=== PATIENT | male | born 1995 | race Caucasian/White ===

== ENCOUNTER 2017-04-25 11:09 | Inpatient (IN) | payer BC, OTHER ==
[~2017-04-25] VITALS: Ht 172.7 cm; Wt 90.7 kg
[2017-04-25 19:54] VITALS: BP 146/83
--- NOTE | 2017-04-25 19:54 | NUR ---
INTAKE ASSESSMENT PATIENT ALERT AND ORIENTED X 4. VS BP- 146/83 P-103 T-97.8 R-18 PA-0/10. Sp02 AT 96% IN RA. PATIENT ANSWER QUESTIONS APPROPRIATELY. SPEECH IS CLEAR. AMBULATORY AND GAIT IS STEADY. PATIENT REPORTS ALLERGIC TO PENICILLIN. NO SEIZURE HISTORY. WILL CONTINUE ADMISSION ON 3RD FLOOR.
--- NOTE | 2017-04-25 20:51 | NUR ---
ADMISSION NOTE PATIENT IS A 22 YEAR OLD MALE WHO PRESENTS TO [facility] FOR SUPERVISED WITHDRAWAL FROM OPIATE/BENZO/METH/COCAINE DEPENDENCE. HEIGHT IS 5'8 AND WEIGHT IS 200 LBS. PATIENT REQUESTED TO BE FULL CODE AND ON REGULAR DIET. LUNGS CLEAR AND ABDOMEN SOFT AND NON-DISTENDED. BOWEL SOUNDS ACTIVE ON ALL QUADRANT. BODY CHECK DONE. SKIN INTACT. NO SKIN BREAKDOWN. LAST BOWEL MOVEMENT 3 DAYS AGO. NO ABDOMINAL CRAMPING. PATIENT REPORTS PMH OF ANXIETY, DEPRESSION AND OVERDOSE (LAST YEAR). PATIENT STATES HE DOESN'T HAVE PCP. PATIENT LIVES WITH A FRIEND AND UNEMPLOYED. PATIENTS DRUG OF CHOICE ARE : XANAX (SNORT AND EAT) - STARTED USING AT AGE 19. TAKES 4-8 MG DAILY FOR 2 WEEKS . LAST USE WAS 6 MG ON 04/25/17 HEROIN (SMOKE )-STARTED USING AT AGE 18 . SMOKES 1 GRAM DAILY FOR 2 WEEKS . LAST USE WAS 3-4 GRAM ON 04/25/17 SUBOXONE (SL)-STARTED USING FOR A MONTH FOR [facility] MAINTENANCE. TAKES 8 MG BID FOR 2 DAYS SINCE IT WAS PRESCRIBED THEN TAKES LESS AFTER . LAST USE WAS 4 MG ON 04/22/17 METHAMPHETAMINE (SMOKE)-STARTED USING AT AGE 22. SMOKES GRAM DAILY FOR A WEEK. LAST USE WAS 1 GRAM ON 04/25/17 COCAINE(SNORT)-STARTED USING AT AGE 18.TAKES "8 BALL" DAILY FOR 2 WEEKS . LAST USE WAS 4-5 GRAM LAST WEEK. MARIJUANA (SMOKE)-STARTED SMOKING AT AGE 12. TAKES FEW HITS RANDOMLY . LAST USE WAS COUPLE OF HITS ON 04/24/17 TREATMENT [facility]- 26 DAYS PATIENT STATES HES ANXIOUS. COWS 10 AND CIWA 7. DENIES SI/HI. PATIENT REFUSED PNEUMONIA AND FLU VACCINE DUE TO FEARS OF SIDE EFFECTS. EDUCATION PROVIDED. PATIENT ORIENTED TO SURROUNDINGS AND HOW TO USE CALL LIGHT. PATIENT WAS PLACED ON FALL PRECAUTION. PATIENT WAS SEEN BY DR. DELGADO IN INTAKE. SAFETY MEASURES IN PLACE. CALL LIGHT IN REACH. WILL CONTINUE TO MONITOR
[2017-04-25 21:06] LABS: *AMPHETAMINE, URINE POSITIVE (NEGATIVE); *BARBITURATE, URINE NEGATIVE (NEGATIVE); *CANNABINOID, URINE POSITIVE (NEGATIVE); *COCCAINE, URINE POSITIVE (NEGATIVE); *OPIATE, URINE POSITIVE (NEGATIVE); *PHENCYCLIDINE SCREEN,URINE NEGATIVE (NEGATIVE)
[2017-04-25 23:34] LABS: ETHANOL < 3 MG/DL (0-0)
[2017-04-25 23:40] LABS: ALANINE AMINOTRANSFERASE 25 U/L (16-63); ALKALINE PHOSPHATASE 81 U/L (50-136); ASPARTATE AMINOTRANSFERASE 24 U/L (15-37); BILIRUBIN,TOTAL 1.5 mg/dL (0.2-1.0); CARBON DIOXIDE 31 mmol/L (21-32); CHLORIDE 101 mmol/L (98-107); CREATININE 1.2 mg/dL (0.6-1.3); GLUCOSE 116 mg/dL (74-106); POTASSIUM 3.4 mmol/L (3.5-5.1); TOTAL PROTEIN, SERUM 8.1 g/dL (6.4-8.2); UREA NITROGEN, BLOOD 8 mg/dL (7-18)
[2017-04-26] VITALS: BP 140/75
[2017-04-26 00:02] LABS: BASOPHILS # (AUTO) 0.1 K/uL (0.0-8.0); BASOPHILS % (AUTO) 0.7 % (0.0-2.0); EOSINOPHILS # (AUTO) 0.9 K/uL (0.0-0.7); EOSINOPHILS % (AUTO) 8.4 % (0.0-7.0); HEMATOCRIT 48.6 % (40-50); HEMOGLOBIN 16.6 G/DL (14.0-18.0); LYMPHOCYTES # (AUTO) 2.6 K/UL (0.8-4.8); LYMPHOCYTES % (AUTO) 23.7 % (20.5-74.5); MEAN CORPUSCULAR HEMOGLOBIN 30.2 UUG (27.0-31.0); MEAN CORPUSCULAR HGB CONC 34 g/dL (32.0-37.0); MEAN CORPUSCULAR VOLUME 88.4 FL (82.0-92.0); NEUTROPHILS # (AUTO) 5.8 K/UL (1.8-8.9); NEUTROPHILS % (AUTO) 51.7 % (31.5-64.5); PLATELET COUNT (AUTO) 368 K/UL (150-450); WHITE BLOOD COUNT (AUTO) 11.1 K/UL (4.0-11.2)
[2017-04-26 00:03] LABS: MONOCYTES % (AUTO) 15.5 % (0-11)
[2017-04-26 00:04] LABS: MONOCYTES # (AUTO) 1.7 K/UL (0.1-1.30)
--- NOTE | 2017-04-26 00:07 | NUR ---
PRN CATAPRES, VISTARIL AND BENADRYL ADMINISTRATION PATIENT C/O ANXIETY, RESTLESS AND UNABLE TO SLEEP. PRN VISTARIL , CATAPRES AND BENADRYL GIVEN. WILL MONITOR FOR EFFECTIVENESS.
--- NOTE | 2017-04-26 01:07 | NUR ---
PRN VISTARIL .CATAPRES AND BENADRYL PATIENT ASLEEP AT THIS TIME. RESPIRATION EVEN AND UNLABORED. NO S/S OF DISTRESS. WILL CONTINUE TO MONITOR
[2017-04-26 04:00] VITALS: BP 111/59
--- NOTE | 2017-04-26 04:00 | NUR ---
COWS/CIWA PATIENT SLEEPING. COWS AND CIWA DEFERRED. RESPIRATION EVEN AND UNLABORED. SAFETY MEASURES IN PLACE. CALL LIGHT IN REACH. WILL CONTINUE TO MONITOR.
[2017-04-26] MEDS ORDERED: DOXY100C2 PO (04:02)
[2017-04-26] MEDS ORDERED: QUET100T PO (04:02)
[2017-04-26] MEDS ORDERED: HYDR-3028 PO (04:02)
[2017-04-26] MEDS ORDERED: DULO60CA45 PO (04:02)
[2017-04-26] MEDS ORDERED: BUPR1FIL3 SL (04:05)
[2017-04-26] MEDS ORDERED: TRAZ-144 PO (04:05)
--- NOTE | 2017-04-26 07:06 | NUR ---
END OF SHIFT NOTE PATIENT IS A 22 YEAR OLD MALE ADMITTED FOR OPIATE/BENZO/METH/COCAINE DEPENDENCE. PATIENT COMPLIANT WITH MEDICATION. COOPERATIVE. PATIENT WAS GIVEN PRN VISTARIL, CATAPRES AND BENADRYL . PATIENT SLEPT 5 HOURS. FLUID INTAKE 355 ML. VOIDED X 1. NO BM. ENDORSED TO NEXT SHIFT NURSE PATIENTS POTASSIUM 3.4. SAFETY MEASURES IN PLACE. CALL LIGHT IN REACH. WILL CONTINUE TO MONITOR.
--- NOTE | 2017-04-26 07:12 | NUR ---
END OF SHIFT NOTE PATIENT IS A 33 YEAR OLD MALE ADMITTED FOR BENZODIAZEPINE DEPENDENCE. PATIENT COMPLETED VALIUM TAPER. PATIENT IS MEDICALLY CLEARED TO BE DISCHARGE TODAY. PATIENT WITH SEIZURE HISTORY 2 YEARS AGO (BENZO W/D). PATIENT IS COMPLAINT WITH MEDICATION AND TREATMENT PLAN. PATIENT WAS GIVEN PRN BENADRYL FOR SLEEP. PATIENT REMAIN ALERT AND ORIENTED X 4. RESPIRATION EVEN AND UNLABORED. NO SOB. PATIENT DENIES ANY PAIN DURING SHIFT. ON FALL/SEIZURE PRECAUTION. SAFETY MEASURES IN PLACE. CALL LIGHT IN REACH. WILL CONTINUE TO MONITOR . SLEPT 7 HOURS. FLUID INTAKE OF 1,855. VOIDED X 3. NO BM. LAST CIWA 0. Addendum: 04/26/17 at 0713 by GUSTABO KING LVN ERROR: THIS CHARTING IS FOR ANOTHER PATIENT
--- NOTE | 2017-04-26 07:30 | NUR ---
START OF SHIFT Pt is a 22 yr old male, A&Ox3. Pt was admitted during the night on 04/25/17 for Opiate/Benzo Dependence and is to start on 4 day Ativan and 4 day Subutex taper today on 04/26/17. Received report from shift manager nurse. Pt received Clonidine PRN, Vistaril PRN and Benadryl PRN during the night. Medication was effective. Last COWS score was 3 and CIWA score was 1 at 0000. Pt is currently in bed resting with respirations even and unlabored. No acute distress noted. Safety precautions is observed. Was endorsed to f/u with K+ of 3.4. Will f/u with MD. Call light is within reach. Will continue to monitor.
[2017-04-26 08:00] VITALS: BP 124/60
[2017-04-26 10:00] LABS: EOSINOPHILS % (MANUAL) 7 % (0-8); LYMPHOCYTES % (MANUAL) 26 % (38-48); MONOCYTES % (MANUAL) 13 % (2-10); NEUTROPHILS % (MANUAL) 54 % (40-55)
[2017-04-26 11:01] LABS: NEUTROPHILS % (MANUAL) 0 % (40-55)
--- NOTE | 2017-04-26 11:19 | NUR ---
ENDORSEMENT GIVEN Endorse pt to ARYAN Gallagher to continue with care.
--- NOTE | 2017-04-26 11:32 | NUR ---
ENDORSEMENT RECEIVED. PT AOX4. DENIES S/I AND H/I. NO DISTRESS NOTED. ALL NEEDS MET. WILL MONITOR AND CONTINUE PLAN OF CARE.
[2017-04-26 12:00] VITALS: BP 128/75
--- NOTE | 2017-04-26 15:41 | NUR ---
COMMUNICATION Pt awake and said he is having night terrors and mild hallucinations, communicated with Dr. Douglas (who is on unit) about patient status. Verbal order for Seroquel 50mg PO Once. Primary nurse to administer medication. Addendum: 04/26/17 at [address] RN patient refused medication. he states seroquel will just make him more tired and he will take it before bed as ordered.
[2017-04-26 16:00] VITALS: BP 109/82
--- NOTE | 2017-04-26 16:45 | NUR ---
Therapist prompted client about group times. Client stated he will try to attend tomorrow when he is "not so tired from meds."
--- NOTE | 2017-04-26 18:36 | NUR ---
END OF SHIFT NOTE PT CONTINUED ON 4 DAY SUBUTEX/4 DAY ATIVAN TAPER AND TOLERATED WELL. NO PRNS GIVEN DURING SHIFT DETOX MEDS ARE EFFECTIVE. PT DDI NOT ATTEND GROUPS OR ACTIVITIES. HE RESTED IN BED MOST OF SHIFT. VITAL SIGNS STABLE. LAST CIWA 6 COWS 10. ALL NEEDS MET. ALL SAFETY MEASURES IN PLACE. WILL ENDORSE TO NIGHT NURSE.
[2017-04-26 20:00] VITALS: BP 118/72
--- NOTE | 2017-04-26 20:00 | NUR ---
Start of Shift Notes Received a 22 yr old male, A&Ox4. Admitted on 04/25/17 for Opiate/Benzo dependence. On regular diet, FULL code, allergic to penicillin. On 4 day Ativan and 4 day Subutex taper. During rounds at 2000H, px verbalized back pain 10. COWS 11 and CIWA 9. Respirations even and unlabored. No acute distress noted. Safety precautions is observed. Call light is within reach. We'll continue to monitor.
--- NOTE | 2017-04-26 21:05 | NUR ---
PRN Robaxin Px complained of back pain 01/31. Robaxin 750mg 1 tab given PO as PRN med. We'll continue to monitor.
--- NOTE | 2017-04-26 21:35 | NUR ---
COWS deferred COWS reassessment deferred after 30 mins of Subutex 2mg, 2 tabs SL administration. due to the px is sleeping, to be assessed if the px is awake per doctor's order. We'll continue to monitor.
[2017-04-27] VITALS: BP 116/71
--- NOTE | 2017-04-27 | NUR ---
COWS and CIWA deferred Assessment for COWS and CIWA at 0000 were deferred due to the px is sleeping, to assess if the px is awake per doctor's order. We'll continue to monitor.
--- NOTE | 2017-04-27 03:54 | NUR ---
PRN motrin and tylenol Px woke up complaining of severe pain on left posterior thigh, 10/10. Assessment done, No swelling nor fx noted. Motrin 600mg 1 tab and Tylenol 325mg 2 tabs given PO as PRN meds. Snack also served to px. We'll continue to monitor.
[2017-04-27 04:00] VITALS: BP 104/57
--- NOTE | 2017-04-27 05:00 | NUR ---
Reassessment of pain deferred Px was sleeping at 0500, pain reassessment was deferred. We'll continue to monitor.
--- NOTE | 2017-04-27 07:19 | NUR ---
End of Shift Notes 22 yr old male, A&Ox4. Admitted on 04/25/17 for Opiate/Benzo dependence. On regular diet, FULL code, allergic to penicillin. During the shift, px verbalized back pain 01/31, Robaxin 750mg 1 tab given PO as PRN med. Respirations even and unlabored. At 0400, Px woke up complaining of severe pain on left posterior thigh, 05/03. Assessment done, No swelling nor fx noted. Motrin 600mg 1 tab and Tylenol 325mg 2 tabs given PO as PRN meds. Snack also served to px. Reassessment of pain was deferred due to the px is sleeping after 1 hour of administration of pain meds. No acute distress noted. Oral intake of 1L, voided 1x, No BM. Slept for 7.5 hrs. Safety precautions are observed. Call light is within reach. We'll continue to monitor.
[2017-04-27 08:00] VITALS: BP 131/65
[2017-04-27 08:11] LABS: HEPATITIS B SURFACE AG Negative (Negative)
--- NOTE | 2017-04-27 08:41 | NUR ---
START OF SHIFT NOTE Received pt aox4. Patient reports feeling tired with generalized body aches. He was given PRN Robaxin, Motrin, and Tylenol per night nurse. Pt on 4 day Ativan/4 day Subutex taper. Last COWS 5 CIWA 5 this am at 0800. He slept for 7 hours. Encouraged pt to attend groups and activities. Encouraged pt to increase fluid intake to facilitate detox. Will monitor closely and offer help.
--- NOTE | 2017-04-27 08:42 | NUR ---
PRN MEDICATION PRN ROBAXIN GIVEN FOR BODY ACHES 01/31 WILL REASSESS
--- NOTE | 2017-04-27 09:45 | NUR ---
PRN REASSESSMENT PATIENT SLEEPING IN BED WITH RR EVEN AND UNLABORED. NO DISTRESS NOTED. WILL MONITOR.
[2017-04-27 12:00] VITALS: BP 118/60
[2017-04-27 16:00] VITALS: BP 108/55
--- NOTE | 2017-04-27 17:56 | NUR ---
PRN MEDICATION ROBAXIN GIVEN FOR BODY ACHES 01/01. WILL REASSESS
--- NOTE | 2017-04-27 18:33 | NUR ---
END OF SHIFT NOTE PT CONTINUED ON 4 DAY SUBUTEX/4 DAY ATIVAN TAPER AND TOLERATED WELL. PRN ROBAXIN X2 GIVEN. PT DID NOT ATTEND GROUPS OR ACTIVITIES. HE RESTED IN BED MOST OF SHIFT. VITAL SIGNS STABLE. LAST CIWA 4 COWS 4. ALL NEEDS MET. ALL SAFETY MEASURES IN PLACE. WILL ENDORSE TO NIGHT NURSE.
--- NOTE | 2017-04-27 18:54 | NUR ---
PRN REASSESSMENT PATIENT REPORTS BODY ACHES DECREASED TO 3/10
[2017-04-27 20:00] VITALS: BP 123/75
--- NOTE | 2017-04-27 20:00 | NUR ---
Start of Shift Notes Received a 22 yr old male, A&Ox4. Admitted on 04/25/17 for Opiate/Benzo dependence. On regular diet, FULL code, allergic to penicillin. On 4 day Ativan and 4 day Subutex taper. During rounds at 2000H, px verbalized back pain 6/10. COWS 6 and CIWA 6. Respirations even and unlabored. No acute distress noted. Safety precautions is observed. Call light is within reach. We'll continue to monitor.
--- NOTE | 2017-04-27 21:11 | NUR ---
PRN Motrin and Tylenol Px complained of back pain of 6/10. Baclofen 10 mg 1 tab given PO as standing order; Motrin 600 mg 1 tab, and Tylenol 325 mg 2 tabs given as PRN meds. We'll continue to monitor.
--- NOTE | 2017-04-27 22:20 | NUR ---
Pain reassessment Pain assessment was deferred due to the px is sleeping. Respirations are even and unlabored at 16 cpm. We'll continue to monitor.
[2017-04-28] VITALS (7 sets, daily range): BP systolic 107–130; BP diastolic 59–87
--- NOTE | 2017-04-28 | NUR ---
COWS and CIWA deferred Assessment for COWS and CIWA deferred due to the px is sleeping, to assess if the px is awake per doctor's order. We'll continue to monitor.
--- NOTE | 2017-04-28 07:09 | NUR ---
Start of Shift Notes 22 yr old male, A&Ox4. Admitted on 04/25/17 for Opiate/Benzo dependence. On regular diet, FULL code, allergic to penicillin. On 4 day Ativan and 4 day Subutex taper. During the shift, Px complained of back pain of 6/10. Baclofen 10 mg 1 tab given PO as standing order; Motrin 600 mg 1 tab, and Tylenol 325 mg 2 tabs given PO as PRN meds. Respirations even and unlabored. No acute distress noted. Oral intake of 600 ml, voided 1x, no BM. Slept for 8 hrs. Last COWS 6, CIWA 6. Safety precautions is observed. Call light is within reach. We'll continue to monitor. Addendum: 04/28/17 at 0713 by DIOGO VELAZCO RN End of shift Notes
--- NOTE | 2017-04-28 10:00 | NUR ---
PRN IBUPROFEN AND ROBAXIN Patient complains of low back pain 5/10, grimacing and guarding noted. PRN ibuprofen and robaxin given. Will continue to monitor patient.
--- NOTE | 2017-04-28 10:05 | NUR ---
START OF SHIFT Received report from power and recovery shift engineer nurse. Patient is 22 year old male admitted for medically supervised withdrawal from alcohol and alprazolam. Patient is full code with allergy to penicillin. On assessment this AM: CIWA: 4 and COWS: 5. Denies SOB, chest pain. Patient's vitals signs WNL. Reports sweating, dilation of pupils noted, tremors and anxiety. Complains of low back pain. Denies nausea, vomiting, diarrhea, tingling sensation at this time. Med compliant with AM meds. PRN robaxin and ibuprofen given for low back pain 12/01. Patient reports no BM for 3 days but declined prn when offered and states he just needs to eat more, will notify MD. Patient refused his breakfast. Patient was encouraged to hydrate with fludis and attend group meetings today. Will continue to monitor patient.
--- NOTE | 2017-04-28 11:00 | NUR ---
REASSESSMENT PRN IBUPROFEN AND ROBAXIN Patient is noted asleep, sleeping comfortably.
--- NOTE | 2017-04-28 12:50 | NUR ---
PRN TYLENOL AND CLONIDINE Patient complains of low back pain and anxiety. PRN Tylenol and clonidine (BP 121/69, HR 90) given. Will continue to monitor patient.
--- NOTE | 2017-04-28 13:45 | NUR ---
Activity Group Note: Client chose not to participate in "sand art" activity, but continued to socialize with peers. Intervention goal was to increase task focus and leisure skills. Client appeared confused and stated that he was "tired." Client's mood was appropriate. Client was present for activity but did not participate. First encounter, and will continue to encourage participation.
--- NOTE | 2017-04-28 13:50 | NUR ---
REASSESSMENT PRN TYLENOL AND CLONIDINE Patient repots pain decreased to 3/10 and anxiety resolved
--- NOTE | 2017-04-28 19:31 | NUR ---
END OF SHIFT Received report from shift stacker nurse. Patient is 22 year old male admitted for medically supervised withdrawal from alcohol and alprazolam. Patient is full code with allergy to penicillin. Patient on 5-day ativan and 5-day subutex taper. Most recent CIWA: 3 AND COWS: 3. Noted pupil dilation, mild tremors and anxiety. Denies nausea, vomiting, diarrhea, tingling sensation at this time. Med compliant. PRN robaxin and ibuprofen and tylenol given for low back pain, and clonidine for anxiety. PPD skin test read on RFA with negative result. Ambulating with steady gait, no falls noted. student life vice presidentshift stacker will continue to monitor patient.
--- NOTE | 2017-04-28 19:31 | NUR ---
START OF SHIFT NOTE Patient is a 22 year old male admitted to [facility] on 04/25/2017 for Benzodiazepines, Methamphetamine, Opioid, Cocaine, and Marijuana dependence, continue 4 Day Ativan and 4 Day Subutex Taper. Patient tolerated well without ASE. Patient remains compliant with treatment. Medications, and diet regime. Patient Allergy to Penicillin, is on Full Code, Regular Diet, Fall and Seizures Precautions. Patient denies History of Seizures. PMH: Anxiety, Depression, and Substance abuse. Upon endorsement, patient is alert and oriented x4 with steady gait. Speech is clear and soft. Patient is cooperative. COWS 5,CIWA 5. VS WNL. Patient denies pain now. Patient denies SI/HI. Respirations unlabored and even. Patient denies SOB and chest pain. Lungs Sounds are clear bilaterally. Bowel Sounds active in all x4 quadrants. Abdomen is soft and non-tender. PERRLA, brisk capillary refill, beef grinder equal and strong. Skin is intact, warm and dry to touch. Encourage fluids as tolerated. Encourage to attend activities groups. All needs met. Safety measures on place. Call light within reach, bed in lowest position and locked, padded rails up bilaterally rails up bilaterally. Patient endorsed by day shift nurse. Report received. Will continue to monitor closely.
--- NOTE | 2017-04-28 20:53 | NUR ---
PRN ROBAXIN 750 MG 1 TAB PO ADMINISTRATION Patient c/o myalgia . PRN Robaxin 750 mg 1 tab PO for myalgia administrated with full glass of water as ordered. Patient tolerated well. All needs met. Safety measures on place. Call light within reach, bed in lowest position and locked, padded rails up bilaterally rails up bilaterally. Will continue to monitor closely.
--- NOTE | 2017-04-28 21:53 | NUR ---
RE-ASSESSMENT Patient is sleeping. Respirations even and unlabored. RR:15. PRN Robaxin 750 mg 1 tab PO for myalgia was effective. All needs met. Safety measures on place. Call light within reach, bed in lowest position and locked, padded rails up bilaterally rails up bilaterally. Will continue to monitor closely.
--- NOTE | 2017-04-28 21:53 | NUR ---
PRN ROBAXIN 750 MG 1 TAB PO ADMINISTRATION Patient c/o myalgia. PRN Robaxin 750 mg 1 tab PO for myalgia administrated with full glass of water as ordered. Patient tolerated well. All needs met. Safety measures on place. Call light within reach, bed in lowest position and locked, padded rails up bilaterally rails up bilaterally. Will continue to monitor closely. Addendum: 04/28/17 at 2230 by RAZA CHOUDHARY RN wrong note
[2017-04-29] VITALS: BP 115/71
[2017-04-29 04:00] VITALS: BP 117/63
--- NOTE | 2017-04-29 06:57 | NUR ---
END OF SHIFT NOTE: Patient is a 22 year old male admitted to [facility] on 04/25/2017 for Benzodiazepines, Methamphetamine, Opioid, Cocaine, and Marijuana dependence, continue 4 Day Ativan and 4 Day Subutex Taper. Patient tolerated well without ASE. Patient remains compliant with treatment. medications, and diet regime. Patient reports Allergy to Penicillin, is on Full Code, Regular Diet, Fall and Seizures Precautions. Patient denies a history of withdrawal-induced seizures. PMH: Anxiety, Depression, and Substance abuse. Last COWS 6 @0400, CIWA 5 @0400. COWS and CIWA taken when patient's alert during the night. Last VS @0400: T: 98.4; BP: 117/63; HR: 76; RR:16; RA O2 SAT: 96%. Low back pain level: "6/10". Patient denies SI/HI. Respirations unlabored and even. Abdomen is soft and non-tender. Skin is intact, warm and dry to touch. Patient denies SI/HI. PRN Robaxin 750 mg 1 tab PO administrated @2052 for myalgia was effective. Patient slept 8 hours, intake 2,000 ml, voided x1. Encourage fluids as tolerated. All needs met. Safety measures on place. Call light within reach, bed in lowest position and locked, padded rails up bilaterally rails up bilaterally. Patient endorsed by day shift nurse.
--- NOTE | 2017-04-29 07:55 | NUR ---
BEGINNING OF SHIFT Patient endorsement report received from cutter helper nurse, all pertinent information discussed. patient is a 22 year old Male admitted on: 04/25/2017 with admitting Dx: Opiate/BZO dependence, and substance use history of: Methamphetamine, marijuana, and cocaine. Patient currently under close observation, will monitor, and continues on 4 day ativan and 4 day subutex taper as ordered. Per cutter helper patient patient received PRN: robaxin during cutter helper, medication effective. patient with last ciwa score of: 6 and cow score of: 5. patient received awake, alert and oriented x4, educated regarding plan of care for the day and medication regimen with good verbal understanding. Safety measures in place. call light kept with in reach, will continue to monitor.
[2017-04-29 08:05] VITALS: BP 118/70
[2017-04-29 12:34] VITALS: BP 144/80
--- NOTE | 2017-04-29 14:09 | NUR ---
PRN ROBAXIN Patient c/o muscle aches 01/01, administered Robaxin as ordered, will monitor effectiveness of medication.
--- NOTE | 2017-04-29 15:09 | NUR ---
ROBAXIN REASSESSMENT Patient reports medication effective, current pain level 0/10 will continue to monitor closely. safety measures in place.
[2017-04-29] MEDS ORDERED: GABA-534 PO (15:24)
[2017-04-29] MEDS ORDERED: METH-406 PO (15:24)
[2017-04-29] MEDS ORDERED: IBUP-1955 PO (15:24)
[2017-04-29] MEDS ORDERED: HYDR-3895 PO (15:24)
[2017-04-29 17:42] VITALS: BP 139/78
--- NOTE | 2017-04-29 18:58 | NUR ---
END OF SHIFT Patient alert and oriented x4, vital signs were stable during shift. Patient compliant with therapeutic plan of care during shift. Patient continues on day 4 of Subutex and Ativan taper as ordered, well tolerated, no ASE noted. 0900 assessment patient presented with: heart rate of 83, c/o chills, difficulty sitting still, dilated pupils, mild bone and joint aches, stomach cramps, tremors that can be felt but not seen, irritable, anxiety and barely sweating with cow score of: 12 and ciwa score of: 8; 1300 assessment patient presented with: heart rate of 96, dilated pupils, mild bone and joint aches, tremors that can be felt but not seen, mild anxiety and mild agitation with cow score of: 5 and ciwa score of: 3; 1700 patient presented with: heart rate of 84, dilated pupils, mild bone and joint aches, tremors that can be felt but not seen, mild anxiety and mild agitation with cow score of: 5 and ciwa score of: 3. During shift patient received PRN: Robaxin, medication effective one hour post administration. Patient compliant with plan of care. encouraged to attend group therapies/sessions to learn new coping skills to prevent relapse, noted attending and participating. Patient denies SI/HI. Patient encouraged adequate PO fluid intake as tolerated. Patient encouraged adequate PO fluid intake as tolerated. Safety measures in place. call light kept with in reach, safety measures in place. will continue to monitor closely. patient endorsed to welder 2nd shift nurse, all pertinent information discussed.
--- NOTE | 2017-04-29 18:58 | NUR ---
START OF SHIFT NOTE Patient is a 22 year old male presenting to [facility] for Benzodiazepines, Methamphetamine, Opioid, Cocaine, and Marijuana dependence, continue 4 Day Ativan and 4 Day Subutex Taper. Patient tolerated well without ASE. Patient remains compliant with treatment. Medications, and diet regime. Patient reports Allergy to Penicillin, is on Full Code, Regular Diet, Fall and Seizures Precautions. Patient denies History of Seizures. PMH: Anxiety, Depression, and Substance abuse. Patient is alert and oriented x4 with steady gait. Speech is clear and soft. Patient is cooperative. COWS 5,CIWA 4. VS WNL. Patient denies SI/HI. Respirations unlabored and even. Lungs Sounds are clear bilaterally. Bowel Sounds active in all x4 quadrants. Abdomen is soft and non-tender. PERRLA, brisk capillary refill, a/c technician equal and strong. Skin is intact, warm and dry to touch. Encourage fluids as tolerated. Patient attended groups activities. All needs met. Safety measures on place. Call light within reach, bed in lowest position and locked, padded rails up bilaterally rails up bilaterally. Patient endorsed by outgoing day shift nurse. Report received. Will continue to monitor closely.
[2017-04-29 20:00] VITALS: BP 139/79
[2017-04-30] VITALS: BP 113/64
[2017-04-30 04:00] VITALS: BP 114/61
--- NOTE | 2017-04-30 07:00 | NUR ---
END OF SHIFT NOTE: Patient is a 22 year old male presenting to [facility] for Benzodiazepines, Methamphetamine, Opioid, Cocaine, and Marijuana dependence, continue 4 Day Ativan and 4 Day Subutex Taper. Patient tolerated well without ASE. Patient remains compliant with treatment. Medications, and diet regime. Patient reports Allergy to Penicillin, is on Full Code, Regular Diet, Fall and Seizures Precautions. PMH: Anxiety, Depression, and Substance abuse. Patient denies a history of withdrawal-induced seizures. Last COWS 5 @0400, CIWA 3 @0400. COWS and CIWA taken when patient's alert during the night. Last VS @0400: T: 97.5; BP: 114/61; HR: 83; RR:16; RA O2 SAT: 95%, pain level: "0/10". Respirations unlabored and even. Abdomen is soft and non-tender. Skin is intact, warm and dry to touch. Patient denies SI/HI. No PRN Medications given during my shift. Patient slept 5 hours, intake 855 ml, voided x1. Encourage fluids as tolerated. All needs met. Safety measures on place. Call light within reach, bed in lowest position and locked, padded rails up bilaterally rails up bilaterally. Patient endorsed to day shift nurse.
--- NOTE | 2017-04-30 07:05 | NUR ---
Start Of Shift Report Received. Patient is a 22 year old Male admitted on 04/25/2017 for Opiate/BZO dependence, and substance use history of: Methamphetamine, marijuana, and cocaine. Pt is full code regular diet on fall precautions reports being allergic to penicillin. Pt completed his 4 day Ativan and 4 day Subutex taper as ordered pt tolerated well. Per fast food shift lead patient did not receive any PRN medications during fast food shift lead. Encouraged pt to drink fluids to help facilitate with detox process. Pts last CIWA was a 3 and COWS 5. patient received awake, alert and oriented x4, Pt is to be discharged to [facility] today. All needs met, all safety measures in place, call light within reach bed in lowest locked position, will continue to monitor and provide care.
[2017-04-30 08:00] VITALS: BP 109/60
--- NOTE | 2017-04-30 09:35 | NUR ---
DISCHARGE NOTE Pt is in stable condition. Vitals WNL, Pt alert and oriented x4, skin intact, Pt denies any SI/HI. All discharge paperwork completed dated and signed. Pt educated about discharge instructions, what to do after discharge when to contact MD as well as the s/s reportable to MD, pt verbalized understanding. Pt was provided with all of his discharge paperwork. Pt's last COWS:1 and CIWA:1 taken at 0800. Pt was discharged from [facility] on 04/30/17 at 0930. Pt left the building with all of his belongings, prescriptions and medications. MD and psychiatrist have been contacted notified and aware of pt's d/c.
== END 2017-04-30 09:35 | disposition other institution (70) | DRG 895 ==
LOC: SRC 18:57
PROVIDERS: ADMIT Internal Medicine; ATTEND Internal Medicine
PROC: HZ2ZZZZ Detoxification Services for Substance Abuse Treatment (ICD-10-PCS; principal; 2017-04-25)
PROC: HZ31ZZZ Individual Counseling for Substance Abuse Treatment, Behavioral (ICD-10-PCS; 2017-04-27)
PROC: HZ41ZZZ Group Counseling for Substance Abuse Treatment, Behavioral (ICD-10-PCS; 2017-04-28)
DX: F11.23 Opioid dependence with withdrawal (principal); F33.2 Major depressive disorder, recurrent severe without psychotic features; I15.9 Secondary hypertension, unspecified; R17 Unspecified jaundice; F13.230 Sedative, hypnotic or anxiolytic dependence with withdrawal, uncomplicated; F14.10 Cocaine abuse, uncomplicated; F17.210 Nicotine dependence, cigarettes, uncomplicated; Z81.8 Family history of other mental and behavioral disorders; Z82.49 Family history of ischemic heart disease and other diseases of the circulatory system; Z59.0 Homelessness; F41.9 Anxiety disorder, unspecified; E87.6 Hypokalemia; G47.00 Insomnia, unspecified; Z91.89 Other specified personal risk factors, not elsewhere classified; Z79.899 Other long term (current) drug therapy; F15.10 Other stimulant abuse, uncomplicated; F12.10 Cannabis abuse, uncomplicated; R73.9 Hyperglycemia, unspecified; Z59.1 Inadequate housing
CPT/HCPCS: 36415; 70030-TC; 80307; 80324; 80346; 80349; 80353; 80361; 83735; 85025; 86580; 86592; 86705; 86803; 87340; 87806; A4663; G0480; J1885; Q0163